=== PATIENT | female | born 1950 | race Hispanic/Latino ===

== ENCOUNTER → 2018-12-08 | Outpatient (CLI) | payer MEDICARE, OTHER | END | disposition home or self-care (01) | LOC: CT 10:43 | PROVIDERS: ATTEND Orthopaedic Surgery | DX: M17.11 Unilateral primary osteoarthritis, right knee (principal) | CPT/HCPCS: 73700 ==

== ENCOUNTER 2019-01-03 08:00 | Inpatient (IN) | payer MEDICARE, OTHER ==
[2018-12-29 11:20] VITALS: BP 146/81
[2018-12-29 11:57] LABS: BILIRUBIN,URINE NEGATIVE (NEGATIVE); UROBILINOGEN,URINE NORMAL (NEGATIVE)
[2018-12-29 11:59] LABS: BASOPHIL % 0.4 % (0.0-0.2); EOSINOPHIL # 0.2 10^3/uL (0.0-0.2); EOSINOPHIL % 2.2 % (0.0-5.0); HEMOGLOBIN 13.3 g/dL (12.0-15.0); LYMPHOCYTES # 2.3 10^3/uL (1.0-4.8); LYMPHOCYTES % 34.2 % (24.0-44.0); MEAN CELL HGB 30.8 pg (26-34); MEAN CORP VOLUME 90.5 fL (78-100); MEAN PLATELET VOLUME 10.4 fL (7.8-11.0); MONOCYTES # 0.5 10^3/uL (0.3-0.8); MONOCYTES % 6.8 % (5.0-12.0); NEUTROPHIL # 3.8 10^3/uL (1.8-7.7); NEUTROPHILS % 56.4 % (41.0-85.0); RED CELL DISTRIBUTION WIDTH 12.8 % (11.5-14.5); WHITE BLOOD CELL 6.7 10^3/uL (4.5-11.0)
--- NOTE | 2018-12-29 12:01 | PCM.EKG ---
[facility] Test Date: 2018-12-29 Test Time: 11:36:03 Pat Name: STEPHY WOOTEN Department: Patient ID: [facility]-[id number] Room: Gender: F Molder Labels: AWLVN : 1950 Requested By: JOLANTA BAUTISTA Order Number: [id number] Reading MD: Harish Recinos Measurements Intervals Teague Rate: 56 P: 73 ME: 192 QRS: 53 QRSD: 88 T: 55 QT: 434 QTc: 418 Interpretive Statements Sinus bradycardia Otherwise normal ECG No previous ECG available for comparison Electronically Signed On 12-30-2018 10:40:31 ETHICS MANAGER by Harish Recinos Please click the below link to view image of tracing.
[2018-12-29 12:07] LABS: APPEARANCE,URINE HAZY (CLEAR); UA COLOR YELLOW (YELLOW)
[2018-12-29 12:15] LABS: CALCIUM 9.3 mg/dL (8.4-10.5); CARBON DIOXIDE 27.3 mmol/L (20.0-32)
[~2019-01-03] VITALS: Ht 165.1 cm; Wt 65.8 kg
[2019-01-03] VITALS (11 sets, daily range): BP systolic 115–149; BP diastolic 66–82
[~2019-01-03 08:00] MED LIST: ANCEF ONE; DECADRON ONE; DILAUDID ONE; DIPRIVAN IV ONE; EPHEDRINE SULFATE ONE; LIDOCAINE 2% VIAL ONE; NAROPIN 0.2% 40 MG/20 ML VIAL ONE; NAROPIN 0.5% 5 MG/ML VIAL ONE; NEOSTIGMINE ONE; NS 1000ML 1,000 ML ONE; NS 100ML 100 ML IV ONE; NS 100ML 200 ML IV ONE; NS 250ML 250 ML IV ONE; NS 3000ML IRR IR ONE; PRECEDEX IV ONE; SENSORCAINE 0.5% VIAL ONE; SODIUM CHLORIDE IR ONE; SUBLIMAZE ONE; TORADOL ONE; TRANEXAMIC ACID IV ONE; VERSED ONE; ZEMURON IV ONE; ZOFRAN ONE
[2019-01-03] MEDS: LACTATED RINGERS 1,000 ML IV SCH ×2 (08:43→21:56)
[2019-01-03] MEDS ORDERED: NEURONTIN PO SCH (09:00)
[2019-01-03] MEDS ORDERED: TYLENOL PO SCH (09:00)
[2019-01-03] MEDS ORDERED: ZOFRAN IV PRN (09:30)
[2019-01-03] MEDS ORDERED: DILAUDID IV PRN (09:30)
[2019-01-03] MEDS ORDERED: PHENERGAN IV PRN (09:30)
--- NOTE | 2019-01-03 13:44 | HPH ---
ADMIT DATE: 01/03/2019 CHIEF COMPLAINT: Painful right knee. HISTORY OF PRESENT ILLNESS: A 68-year-old female with right knee pain secondary to osteoarthritis for several years. She had night pain as well as pain with just household ambulation. She is no better with home exercise program, bracing, Tylenol, Advil, Aleve. She has had multiple cortisone injections in the past with only temporary relief. She complains of locking about the right knee as well as swelling. MEDICATIONS: Include omeprazole as well as Aleve. PAST MEDICAL HISTORY: Positive for GERD, hypercholesterolemia. PAST SURGICAL HISTORY: Hiatal hernia repair, hysterectomy, excision of ganglion cyst from the right wrist. ALLERGIES: The patient has no known drug allergies. FAMILY HISTORY: Positive for uterine cancer as well as colon cancer. SOCIAL HISTORY: The patient is . She does not smoke or drink. REVIEW OF SYSTEMS: Negative for chest pain, shortness of breath, nausea, vomiting, melena, hematochezia, dysuria, hematuria, fever, chills or weight loss. PHYSICAL EXAMINATION: GENERAL: Reveals a 5 feet 6, 145 pounds, female, in no acute distress. HEENT: Within normal limits for her age. CHEST: Clear to auscultation bilaterally. HEART: Regular rate and rhythm, no murmur. ABDOMEN: Soft, nontender, good bowel sounds. EXTREMITIES: Right knee has a valgus deformity on standing. She has 3+ effusion. She has -10 degrees of full extension with 120 degrees of flexion, obvious crepitation. She has got good medial and lateral stability about the knee. NEUROLOGICAL: The patient is awake and alert. She is oriented x 3. Cranial nerves 2-12 are grossly intact. She has 5/5 strength in all muscle groups of both upper and lower extremities bilaterally, symmetric. IMAGING STUDIES: X-rays show valgus alignment of the right knee. She is afdf-ay-ensl about the patellofemoral joint and has medial and lateral compartment narrowing. ASSESSMENT: Osteoarthritis of right knee. Other diagnoses include gastroesophageal reflux disease. PLAN: The patient is being admitted for right total knee arthroplasty. The risks and hazards of the procedure have been reviewed with the patient. She understands the risk involved and wants to proceed as planned. Tamir Sánchez MD DR: JACKELYN/mckinley JOB# [id number]
[2019-01-03] MEDS ORDERED: CEPACOL SORE THROAT LOZENGE MM PRN (14:00)
[2019-01-03] MEDS ORDERED: LACTATED RINGERS 1,000 ML IV SCH (14:00)
[2019-01-03] MEDS ORDERED: ANCEF 2 GM/D5W 50ML IV SCH (14:00)
--- NOTE | 2019-01-03 14:03 | DIREP ---
PROCEDURE:XRAY KNEE 2 VWS-RT COMPARISON:None. INDICATIONS:post-op total right knee FINDINGS: BONES:No acute fracture or loose bone fragment. JOINTS:Right femoral and tibial prostheses appear well seated and in good alignment. Posterior patellar resurfacing. SOFT TISSUES:Postoperative air and multiple skin urbano. OTHER:No additional findings. CONCLUSION:Postoperative changes of recent right knee arthroplasty. Dictated by: Mary Fernandez MD on 01/03/2019 at 02:02 PM
--- NOTE | 2019-01-03 14:16 | OPH ---
DATE OF SURGERY: 01/03/2019 PREOPERATIVE DIAGNOSIS: Osteoarthritis of the right knee. POSTOPERATIVE DIAGNOSIS: Osteoarthritis of the right knee. OPERATIVE PROCEDURE: Right total knee arthroplasty using Medacta Sphere knee, size 4 femur, a size 4 tibia, 10 mm insert, a size 2 dome patella. All components were cemented. SURGEON: Tamir Sánchez MD ANESTHESIA: General endotracheal. TOURNIQUET TIME: 77 minutes at 300 mmHg. DRAINS: None. BLOOD LOSS: 400 mL. DESCRIPTION OF INDICATIONS: The patient is a 68-year-old female with pain about the right knee for several years secondary to osteoarthritis. She failed conservative treatment as outlined in her history and physical. She was lmaf-xb-ewhh about the patellofemoral joint as well as the lateral compartment. She was taken to the operating room for right total knee arthroplasty for pain relief. DESCRIPTION OF PROCEDURE: The patient was placed on operating table in the supine position. A general endotracheal anesthetic was induced without difficulty. The right thigh was padded and a tourniquet was applied. Right lower extremity was then sterilely prepped and draped. The leg was exsanguinated with an Esmarch and the tourniquet was inflated to 300 mmHg. Knee was flexed to 90 degrees. An anterior incision was made. Incision was taken through the skin and the subcutaneous tissues. Full thickness flaps were developed medially and laterally. Medial parapatellar arthrotomy was performed. The patella was deviated laterally. Medial and lateral meniscectomies were completed and the anterior and posterior cruciate ligaments were excised. The capsule and MCL were released around the posterior medial corner. The patient had a synovectomy performed of the suprapatellar pouch because of quite a bit of hypertrophic synovium. The patient then had the [place]Knee femoral cutting guide placed about the distal femur and held into position with multiple pins. The distal femoral cut was then made with the power saw. The #2 jig size 4 was applied to the distal femur and held into position with multiple pins and multiple screws. Anterior and posterior femoral cuts as well as the chamfer cuts were then made. The patient then had the tibia subluxed anteriorly with a bent knee retractor. Medial and lateral meniscectomies were completed. The patient then had the MyKnee tibial guide applied to the anterior tibia. Tibial cut was then made with the power saw. The flexion and extension blocks were used. With a 10 mm block, there was good stability at 90 degrees of flexion and full extension. The patient then had the size 4 tibial trial applied. It was held into position with multiple pins. The central drill hole was made and then the cruciate punch was used to stabilize the tibial trial component. The trial reduction was done with a size 4 femur, size 4 tibia, 10 mm insert. There was good stability. There was good tracking of the patella. The patella was everted. Patella was cut at 7 mm. There were still 14 mm of patella left. The drill holes were made and a size 2 patella had good coverage. The patient then had the final medial and lateral femoral drill holes made. The femoral sulcus cut was made. The trial components were then removed from the knee. The bone ends were copiously irrigated and the bone ends were dried. A size 4 tibial component was cemented into position. The 10 mm insert was then impacted into position and secured with an anterior screw. The size 4 femoral component and the patella were likewise cemented. Once all the excess cement was removed, then the tourniquet was released. The wound was irrigated with Betadine-containing solution for 3 minutes. Once the tourniquet was released, the bleeding was controlled with the Aquamantys device. The soft tissue was injected with the numbing medication. The patient then had the capsule closed with a #2 PDS in interrupted [id number]-rg-[id number] manner. The subcutaneous was closed with a running 2-0 barbed Monocryl. The skin was closed with urbano. A Prevena dressing was applied, reinforced with 4 x 4's, cast padding and Waqas wrap. The patient was extubated in the operating room, sent to recovery in stable condition. Tamir Sánchez MD DR: JACKELYN/mckinley JOB# [id number]
--- NOTE | 2019-01-03 14:16 | NUR ---
ARRIVAL Pt ARRIVED TO UNIT IN ROOM 337 FROM OR, IN HOSPITAL BED ASSISTED BY NURSE LEX RN AND KELSEY RN, REPORT RECIEVD, OFFERED FLUIDS, SPOUSE OF PT AT THE BEDSIDE, INITIATED SPECIAL VITAL, REENFORCED Pt TO USE CALL LIGHT FOR HELP PT VERBALIZED UNDERSTANDING.
[2019-01-03] MEDS: REGLAN IV SCH ×2 (14:53→21:54)
[2019-01-03] MEDS: TYLENOL PO SCH ×3 (15:00→20:52)
[2019-01-03] MEDS ORDERED: LANOLIN HYDROUS TP ONE (15:02)
[2019-01-03] MEDS: ULTRAM PO SCH ×2 (16:09→20:00)
[2019-01-03 18:07] LABS: HEMOGLOBIN 12.5 g/dL (12.0-15.0); MEAN CELL HGB 30.8 pg (26-34); MEAN CORP VOLUME 90.6 fL (78-100); MEAN PLATELET VOLUME 10.3 fL (7.8-11.0); RED CELL DISTRIBUTION WIDTH 12.6 % (11.5-14.5); WHITE BLOOD CELL 8.5 10^3/uL (4.5-11.0)
[2019-01-03] MEDS: ANCEF 2 GM/D5W 50ML 50 ML IV SCH ×2 (18:59)
[2019-01-03] MEDS: ULTRAM PO PRN (20:51)
[2019-01-04] MEDS: ULTRAM PO PRN ×2 (00:37→04:46)
[2019-01-04] MEDS: ANCEF 2 GM/D5W 50ML 50 ML IV SCH ×4 (03:16→11:00)
[2019-01-04] MEDS: TYLENOL PO SCH ×4 (03:20→21:00)
[2019-01-04] MEDS: ULTRAM PO SCH ×6 (04:00→20:00)
[2019-01-04 05:06] VITALS: BP 127/70
[2019-01-04 05:06] LABS: HEMOGLOBIN 11.5 g/dL (12.0-15.0); MEAN CELL HGB 30.5 pg (26-34); MEAN CELL HGB CONCENTRATION 33.9 g/dL (33-37); MEAN CORP VOLUME 89.9 fL (78-100); MEAN PLATELET VOLUME 10.6 fL (7.8-11.0); RED CELL DISTRIBUTION WIDTH 12.4 % (11.5-14.5); WHITE BLOOD CELL 10.5 10^3/uL (4.5-11.0)
[2019-01-04] MEDS: REGLAN IV SCH ×3 (06:38→21:30)
[2019-01-04] MEDS: PEPCID PO SCH (08:33)
[2019-01-04] MEDS: XARELTO PO SCH (08:33)
[2019-01-04] MEDS: COLACE PO SCH (08:33)
[2019-01-04 08:41] VITALS: BP 121/67
--- NOTE | 2019-01-04 09:49 | PRM.PN ---
Subjective Subjective Date: Jan 04, 2019 Time: 09:47 Subjective Awake and alert Pain ok NVM+ vss Stable 3/5 Some nausea this am Better now Ambulated wit PT VSS HGB 11.0 postop anemia from surgical blood loss expected Cont with PT Patient History: No known health problems 33 FATHER, , Age:60 years and older G8 BROTHER G8 SISTER V19 CHILD V19 CHILD No Family History of: Alzheimer's disease Asthma Cerebrovascular disorder Chronic obstructive pulmonary disease Congestive heart failure Diabetes insipidus Diabetes mellitus Hypertension Parkinson's disease VTE VTE Risk Total Score: 2 VTE Risk Score VTE Risk: Score 0-1 = Low Risk (Aggressive mobilization; early ambulation; no VTE prophylaxis required) Score 2: Moderate Risk (Intermittent/Pneumatic Compression Device OR Lovenox/Heparin/Coumadin) Score 3-4: High Risk (Intermittent/Pneumatic Compression Device AND Lovenox/Heparin/Coumadin) Score > or =5: Highest Risk (Intermittent/Pneumatic Compression Device AND Lovenox/Heparin/Coumadin) Review of Systems Allergies: Coded Allergies: No Known Allergies (Unverified , 12/29/18) No Active Prescriptions or Reported Meds Objective Vitals and I/O Vital Sign - Last 24 Hours 01/03/19 01/03/19 01/03/19 01/03/19 08:24 08:24 09:44 09:52 Temp 98.1 98.1 Pulse 74 66 62 Resp 16 18 18 B/P (MAP) 139/73 (95) 149/66 (93) 130/80 (97) Pulse Ox 97 100 100 O2 Delivery Room Air Room Air Nasal Canula Nasal Canula O2 Flow Rate 2 2 01/03/19 01/03/19 01/03/19 01/03/19 09:59 13:25 13:25 13:39 Temp 97.7 98 97.7 98.0 Pulse 62 62 63 Resp 18 18 18 B/P (MAP) 127/76 (93) 115/72 (86) 122/66 (84) Pulse Ox 100 100 100 O2 Delivery Nasal Canula Non-Rebreather Room Air O2 Flow Rate 3 10 10 01/03/19 01/03/19 01/03/19 01/03/19 13:54 14:16 14:30 15:21 Temp 97.6 97.9 97.6 97.9 Pulse 66 60 Resp 18 20 18 B/P (MAP) 121/70 (87) 128/74 (92) Pulse Ox 99 97 99 O2 Delivery Room Air Room Air Room Air 01/03/19 01/03/19 15:22 15:40 Temp 97.9 97.9 Pulse 60 81 Resp 16 20 B/P (MAP) 122/68 (86) Pulse Ox 60 98 O2 Delivery Room Air Room Air FiO2 99 All Results(Lab/Rad) Current Medications Medications (Trade) Dose Ordered Sig/Laura Route PRN Reason Start Time Stop Time Status Last Admin Dose Admin Cefazolin Sodium (Ancef) 1 gm STK-MED ONCE .ROUTE 01/03/19 05:36 01/03/19 05:37 DC Sodium Chloride 100 ml @ ud STK-MED ONCE IV 01/03/19 05:36 01/03/19 05:37 DC Sodium Chloride 1,000 ml @ ud STK-MED ONCE .ROUTE 01/03/19 06:21 01/03/19 06:22 DC Sodium Chloride 200 ml @ ud STK-MED ONCE IV 01/03/19 06:21 01/03/19 06:22 DC Dexamethasone Sodium Phosphate (Decadron) 4 mg STK-MED ONCE .ROUTE 01/03/19 06:21 01/03/19 06:22 DC Ropivacaine (Naropin 0.2% 40 Mg/20 ml Vial) 2 mg STK-MED ONCE .ROUTE 01/03/19 06:22 01/03/19 06:23 DC Lidocaine HCl (Lidocaine 2% Vial) 500 mg STK-MED ONCE .ROUTE 01/03/19 06:22 01/03/19 06:24 DC Neostigmine Methylsulfate (Neostigmine) 10 mg STK-MED ONCE .ROUTE 01/03/19 06:22 01/03/19 06:24 DC Dexmedetomidine HCl (Precedex) 200 mcg STK-MED ONCE IV 01/03/19 06:22 01/03/19 06:24 DC Ondansetron HCl (Zofran) 4 mg STK-MED ONCE .ROUTE 01/03/19 06:22 01/03/19 06:24 DC Ketorolac Tromethamine (Toradol) 30 mg STK-MED ONCE .ROUTE 01/03/19 06:23 01/03/19 06:24 DC Ropivacaine (Naropin 0.5% 5 Mg/ml Vial) 150 mg STK-MED ONCE .ROUTE 01/03/19 06:23 01/03/19 06:24 DC Ephedrine Sulfate (Ephedrine Sulfate) 50 mg STK-MED ONCE .ROUTE 01/03/19 06:23 01/03/19 06:25 DC Rocuronium Percival (Zemuron) 100 mg STK-MED ONCE IV 01/03/19 06:24 01/03/19 06:25 DC Hydromorphone HCl (Dilaudid) 2 mg STK-MED ONCE .ROUTE 01/03/19 06:24 01/03/19 06:25 DC Midazolam HCl (Versed) 1 mg STK-MED ONCE .ROUTE 01/03/19 06:24 01/03/19 06:26 DC Fentanyl Citrate (Sublimaze) 100 mcg STK-MED ONCE .ROUTE 01/03/19 06:24 01/03/19 06:26 DC Propofol (Diprivan) 200 mg STK-MED ONCE IV 01/03/19 06:24 01/03/19 06:26 DC Bupivacaine HCl (Sensorcaine 0.5% Vial) 5 mg STK-MED ONCE .ROUTE 01/03/19 06:25 01/03/19 06:26 DC Sodium Chloride (Sodium Chloride) 1,000 ml STK-MED ONCE IR 01/03/19 07:16 01/03/19 07:18 DC Sodium Chloride 100 ml @ ud STK-MED ONCE IV 01/03/19 07:16 01/03/19 07:18 DC Sodium Chloride 250 ml @ ud STK-MED ONCE IV 01/03/19 07:17 01/03/19 07:18 DC Sodium Chloride (NS 3000ml Irr) 3,000 ml STK-MED ONCE IR 01/03/19 07:17 01/03/19 07:18 DC Tranexamic Acid (Tranexamic Acid) 1,000 mg STK-MED ONCE IV 01/03/19 07:37 01/03/19 07:39 DC Acetaminophen (Tylenol) 1,000 mg OT PO 01/03/19 09:00 01/03/19 14:23 DC 01/03/19 09:23 Gabapentin (Neurontin) 400 mg OT PO 01/03/19 09:00 01/03/19 14:22 DC 01/03/19 09:23 Acetaminophen (Tylenol) 1,000 mg Q6H PO 01/03/19 09:00 02/02/19 08:59 Hydromorphone HCl (Dilaudid) 0.2 mg Q5MIN PRN IV PAIN 1 - 3 01/03/19 09:30 01/04/19 09:29 Ondansetron HCl (Zofran) 4 mg PRN PRN IV nv 01/03/19 09:30 01/03/19 14:25 DC Promethazine HCl (Phenergan) 6.25 mg PRN PRN IV NAUSEA / VOMITING 01/03/19 09:30 01/03/19 14:24 DC Tramadol HCl (Ultram) 50 mg Q4HR PO 01/03/19 16:00 02/02/19 15:59 01/03/19 16:09 Tramadol HCl (Ultram) 100 mg Q4HR PRN PO SEVERE PAIN 01/03/19 14:00 02/02/19 13:59 Rivaroxaban (Xarelto) 10 mg DAILY PO 01/04/19 09:00 02/03/19 08:59 Docusate Sodium (Colace) 100 mg DAILY PO 01/04/19 09:00 02/03/19 08:59 Throat Lozenges (Cepacol Sore Throat Lozenge) 1 each PRN PRN MM SORE THROAT 01/03/19 14:00 02/02/19 13:59 Famotidine (Pepcid) 20 mg DAILY PO 01/04/19 09:00 02/03/19 08:59 Metoclopramide HCl (Reglan) 10 mg Q8HR IV 01/03/19 14:00 02/02/19 13:59 01/03/19 14:53 Cefazolin Sodium/ Dextrose (Ancef 2 Gm/D5W 50ml) 2 gm Q8 IV 01/03/19 14:00 01/03/19 14:12 DC Hydromorphone HCl (Dilaudid) 2 mg Q6HR PRN IV PAIN 8-10 01/03/19 14:00 02/02/19 13:59 Cefazolin Sodium/ Dextrose 50 ml @ 100 mls/hr Q8 IV 01/03/19 14:00 01/03/19 15:24 DC Lanolin (Lanolin Hydrous) 28 gm STK-MED ONCE TP 01/03/19 15:02 01/03/19 15:03 DC Cefazolin Sodium/ Dextrose 50 ml @ 100 mls/hr Q8H IV 01/03/19 19:00 01/04/19 11:29 Course Sepsis Screening Results: Posi: NEGATIVE Sepsis Qualifier/Stage: NO DEFINITE RISK Vitals & review Data Vital Sign - Last 24 Hours 01/03/19 01/03/19 01/03/19 01/03/19 08:24 08:24 09:44 09:52 Temp 98.1 98.1 Pulse 74 66 62 Resp 16 18 18 B/P (MAP) 139/73 (95) 149/66 (93) 130/80 (97) Pulse Ox 97 100 100 O2 Delivery Room Air Room Air Nasal Canula Nasal Canula O2 Flow Rate 2 2 01/03/19 01/03/19 01/03/19 01/03/19 09:59 13:25 13:25 13:39 Temp 97.7 98 97.7 98.0 Pulse 62 62 63 Resp 18 18 18 B/P (MAP) 127/76 (93) 115/72 (86) 122/66 (84) Pulse Ox 100 100 100 O2 Delivery Nasal Canula Non-Rebreather Room Air O2 Flow Rate 3 10 10 01/03/19 01/03/19 01/03/19 01/03/19 13:54 14:16 14:30 15:21 Temp 97.6 97.9 97.6 97.9 Pulse 66 60 Resp 18 20 18 B/P (MAP) 121/70 (87) 128/74 (92) Pulse Ox 99 97 99 O2 Delivery Room Air Room Air Room Air 01/03/19 01/03/19 15:22 15:40 Temp 97.9 97.9 Pulse 60 81 Resp 16 20 B/P (MAP) 122/68 (86) Pulse Ox 60 98 O2 Delivery Room Air Room Air FiO2 99 Current Medications Medications (Trade) Dose Ordered Sig/Laura PRN Reason Start Time Stop Time Status Last Admin Acetaminophen (Tylenol) 1,000 mg Q6H 01/03/19 09:00 02/02/19 08:59 Cefazolin Sodium/ Dextrose 50 ml @ 100 mls/hr Q8H 01/03/19 19:00 01/04/19 11:29 Docusate Sodium (Colace) 100 mg DAILY 01/04/19 09:00 02/03/19 08:59 Famotidine (Pepcid) 20 mg DAILY 01/04/19 09:00 02/03/19 08:59 Hydromorphone HCl (Dilaudid) 0.2 mg Q5MIN PRN PAIN 1 - 3 01/03/19 09:30 01/04/19 09:29 Hydromorphone HCl (Dilaudid) 2 mg Q6HR PRN PAIN 8-10 01/03/19 14:00 02/02/19 13:59 Metoclopramide HCl (Reglan) 10 mg Q8HR 01/03/19 14:00 02/02/19 13:59 01/03/19 14:53 Rivaroxaban (Xarelto) 10 mg DAILY 01/04/19 09:00 02/03/19 08:59 Throat Lozenges (Cepacol Sore Throat Lozenge) 1 each PRN PRN SORE THROAT 01/03/19 14:00 02/02/19 13:59 Tramadol HCl (Ultram) 50 mg Q4HR 01/03/19 16:00 02/02/19 15:59 01/03/19 16:09 Tramadol HCl (Ultram) 100 mg Q4HR PRN SEVERE PAIN 01/03/19 14:00 02/02/19 13:59 Sepsis Infection Criteria Pres: None LEVEL 1 SEPSIS INFECTION CRITE: ABX Therapy, Recent Invasive Procedure O2 Sat by Pulse Oximetry: 93 Oxygen Flow Rate: 10 JOLANTA BAUTISTA MD Jan 04, 2019 09:49
--- NOTE | 2019-01-04 10:09 | NUR ---
Post Anesthesia Visit. Ms. Madsen had a Right Total Knee Arthroplasty yesterday with a Right Femoral, Adductor Canal and IPAK block. She was sitting in a chair after ambulating. She has been taking Tramadol Since yesterday but it is upsetting her stomach. She rated the knee pain at a 2 to 3. In talking with the nurse, he feels yesterday she was nauseated more than uncomfortable and had a good first day. Injection sites appear clean and dry without evidence of redness or infection. Full sensation and movement appear to have returned. She states she is very happy with her post operative course so far. No apparent post anesthetic or post block sequelae
[2019-01-04] MEDS: LACTATED RINGERS 1,000 ML IV SCH ×3 (11:43→21:30)
[2019-01-04] MEDS ORDERED: ANCEF 2 GM/D5W 50ML 50 ML IV ONE (12:00)
[2019-01-04 12:50] VITALS: BP 128/57
[2019-01-04] MEDS: ZOFRAN IV PRN ×2 (16:54→20:24)
[2019-01-04 16:59] VITALS: BP 142/65
--- NOTE | 2019-01-04 17:10 | NUR ---
STATUS PT DIAZ CATHETER TUBE SHOWS HEMATURIA. PT HAS CONTINUED TO VOMIT AT THIS TIME WITHOUT BEING ABLE TO KEEP FOOD OR FLUIDS DOWN. DR. BAUTISTA NOTIFIED. DR. DIAZ CONSULTED. NEW ORDERS RECEIVED FROM LABS, ABD XRAY, AND ZOFRAN 4MG IV Q4H. WILL CONT TO MONITOR PT.
[2019-01-04 17:15] LABS: HEMOGLOBIN 11.1 g/dL (12.0-15.0); LYMPHOCYTES # 1.4 10^3/uL (1.0-4.8); LYMPHOCYTES % 10.1 % (24.0-44.0); MEAN CELL HGB 31.3 pg (26-34); MEAN CELL HGB CONCENTRATION 35.1 g/dL (33-37); MEAN PLATELET VOLUME 10.5 fL (7.8-11.0); MONOCYTES # 1.3 10^3/uL (0.3-0.8); MONOCYTES % 9.4 % (5.0-12.0); NEUTROPHIL # 11.1 10^3/uL (1.8-7.7); NEUTROPHILS % 80.4 % (41.0-85.0); RED CELL DISTRIBUTION WIDTH 12.2 % (11.5-14.5); WHITE BLOOD CELL 13.8 10^3/uL (4.5-11.0)
[2019-01-04 17:33] LABS: CARBON DIOXIDE 24.1 mmol/L (20.0-32)
[2019-01-04 17:34] LABS: CALCIUM 8.5 mg/dL (8.4-10.5)
[2019-01-04 17:46] LABS: BILIRUBIN,URINE NEGATIVE (NEGATIVE); UROBILINOGEN,URINE NORMAL (NEGATIVE)
[2019-01-04 18:02] LABS: APPEARANCE,URINE BLOODY (CLEAR); UA COLOR BLOODY (YELLOW)
[2019-01-04] MEDS: MYLANTA PO SCH (18:10)
[2019-01-04] MEDS: DILAUDID IV PRN ×2 (18:14→23:35)
--- NOTE | 2019-01-04 18:30 | NUR ---
HEMATURIA HAS SEEMED TO RESOLVE AT THIS TIME. PT URINE IS LIGHT PINK AT THIS TIME.
--- NOTE | 2019-01-04 19:00 | NUR ---
Report Received report from Kierra Lewis RN
[2019-01-04 19:43] VITALS: BP 129/64
--- NOTE | 2019-01-04 20:08 | PRM.CONS ---
Consultation Reason for Consult: Reason for Consultation: Hematuria, Nausea/vomiting History of Present Illness History of Patient Comments Patient is a 68 F PMH of OA s/p R TKA with Dr. Avery, patient is POD #1. Patient began having Hematuria and nausea vomiting earlier this afternoon. Patient had STAT labs ordered including CBC, CMP, and UA. We also ordered Abdominal plain film that is still pending. Patient given IV antiemetics with improvement in symptoms. Patient is stable @ bedside during my evaluation. Hg stable without significant drop so we will continue Xarelto currently. Patient denies fever, chills, or any other concerning symptoms. My concern is for possible postoperative Ileus. Patient abdominal exam is benign. Past Medical History 1. Osteoarthritis 2. Hiatal Hernia s/p repair Past Surgical History 1. Bunionectomy 2. R TKA 3. Hiatal Hernia Repair 4. Ganglion Cyst removal Social History: No tobacco, no drug, no alcohol use. , lives @ home with Family History: noncontributory Review of Systems Constitutional: No: Fever, Chills Eyes: No: Conjunctivae inflammation, Eyelid inflammation ENT: No: Nose discharge, Nose congestion Respiratory: No: Cough, Shortness of breath, SOB with excertion, Wheezing Cardiovascular: No: Chest Pain, Palpitations, Edema Gastrointestinal: Nausea, Vomiting, Constipation; No: Abdominal Pain, Diarrhea Genitourinary: Hematuria; No Retention Musculoskeletal: No: neck pain, back pain Skin: No: Rash, Lesions, Jaundice, Bruising Neurological: No: Weakness, Numbness, Incoordination, Change in speech, Confusion, Seizures Allergies: Coded Allergies: No Known Allergies (Unverified , 12/29/18) No Active Prescriptions or Reported Meds VTE VTE Risk Total Score: 2 VTE Risk Score VTE Risk: Score 0-1 = Low Risk (Aggressive mobilization; early ambulation; no VTE prophylaxis required) Score 2: Moderate Risk (Intermittent/Pneumatic Compression Device OR Lovenox/Heparin/Coumadin) Score 3-4: High Risk (Intermittent/Pneumatic Compression Device AND Lovenox/Heparin/Coumadin) Score > or =5: Highest Risk (Intermittent/Pneumatic Compression Device AND Lovenox/Heparin/Coumadin) Assessment/Plan Assessment/Plan Assessment/Plan Patient is a 68 F PMH of OA s/p R TKA with Dr. Avery, patient is POD #1. Patient History: No known health problems 33 FATHER, , Age:60 years and older G8 BROTHER G8 SISTER V19 CHILD V19 CHILD No Family History of: Alzheimer's disease Asthma Cerebrovascular disorder Chronic obstructive pulmonary disease Congestive heart failure Diabetes insipidus Diabetes mellitus Hypertension Parkinson's disease Plan 1. Hematuria: 2/2 gallegos irritation with anticoagulation use. Hg stable, recheck CBC in AM. 2. Nausea/vomiting: concern for postoperative Ileus. Abdominal XR pending. Cont IV antiemetics. Abdominal exam benign. 3. Leukocytosis: likely 2/2 postoperative changes, possible Ileus/ constipation. No fevers currently. 4. OA: s/p R TKA, Ortho managing. 5. PPx: Joe Vasquez MICAH R MD Jan 04, 2019 20:08
--- NOTE | 2019-01-04 20:13 | NUR ---
Patient refused 2000 Tramadol due to vomitting.
--- NOTE | 2019-01-04 20:16 | DIREP ---
PROCEDURE:XRAY ABDOMEN SINGLE VW COMPARISON:None. INDICATIONS:nausea/vomiting FINDINGS: BOWEL GAS PATTERN:Ixyc-cm-etwrrgyy mixed stool and gas throughout the colon. No dilated loops of small bowel are identified. CALCIFICATIONS:Presumed phleboliths within the pelvis. LUNG BASES:Grossly clear. BONES:Advanced degenerative changes of the spine with dextro convex curvature of the lumbar spine. OTHER:Surgical clips within the right upper quadrant and epigastric region. CONCLUSION: 1. Nonspecific nonobstructive bowel gas pattern. Eqxz-xg-jrcaobyz fecal burden. 2. Presumed phleboliths within the pelvis. Dictated by: Tian Hernandez M.D. On 01/04/2019 at 08:13 PM
[2019-01-04] MEDS ORDERED: TORADOL IV STA (21:18)
[2019-01-04 23:40] VITALS: BP 141/79
[2019-01-05] MEDS: TYLENOL PO SCH ×4 (03:00→21:00)
[2019-01-05] MEDS ORDERED: TORADOL IV STA (03:06)
--- NOTE | 2019-01-05 03:10 | NUR ---
Patient continues to refuse PO meds. States " im scared i will just throw it up "
[2019-01-05] MEDS: ULTRAM PO SCH ×2 (04:00)
[2019-01-05 05:08] VITALS: BP 165/90
[2019-01-05 05:15] LABS: MEAN CELL HGB 30.6 pg (26-34); MEAN CELL HGB CONCENTRATION 34.6 g/dL (33-37); MEAN CORP VOLUME 88.4 fL (78-100); MEAN PLATELET VOLUME 10.6 fL (7.8-11.0); RED CELL DISTRIBUTION WIDTH 12.1 % (11.5-14.5); WHITE BLOOD CELL 11.1 10^3/uL (4.5-11.0)
[2019-01-05 05:49] LABS: CALCIUM 8.3 mg/dL (8.4-10.5); CARBON DIOXIDE 27.2 mmol/L (20.0-32)
[2019-01-05] MEDS: MYLANTA PO SCH ×4 (05:54→19:27)
[2019-01-05] MEDS: REGLAN IV SCH ×3 (05:55→22:33)
--- NOTE | 2019-01-05 06:57 | NUR ---
Report Report given to Kierra Lewis RN
[2019-01-05 07:48] VITALS: BP 138/81
[2019-01-05] MEDS: LACTATED RINGERS 1,000 ML IV SCH ×2 (08:30→21:14)
[2019-01-05] MEDS: ULTRAM PO PRN (08:49)
[2019-01-05] MEDS: ZOFRAN IV PRN ×2 (08:49→17:01)
[2019-01-05] MEDS: PEPCID PO SCH (08:50)
[2019-01-05] MEDS: COLACE PO SCH (08:50)
[2019-01-05] MEDS: XARELTO PO SCH (08:50)
--- NOTE | 2019-01-05 09:38 | PRM.PN ---
Subjective Subjective Date: Jan 05, 2019 Time: 09:36 Subjective Pain ok but still having nausea VSS [id number] Will adjust pain meds Cont with PT Patient History: No known health problems 32 FATHER, , Age:60 years and older G8 BROTHER G8 SISTER V19 CHILD V19 CHILD No Family History of: Alzheimer's disease Asthma Cerebrovascular disorder Chronic obstructive pulmonary disease Congestive heart failure Diabetes insipidus Diabetes mellitus Hypertension Parkinson's disease VTE VTE Risk Total Score: 2 VTE Risk Score VTE Risk: Score 0-1 = Low Risk (Aggressive mobilization; early ambulation; no VTE prophylaxis required) Score 2: Moderate Risk (Intermittent/Pneumatic Compression Device OR Lovenox/Heparin/Coumadin) Score 3-4: High Risk (Intermittent/Pneumatic Compression Device AND Lovenox/Heparin/Coumadin) Score > or =5: Highest Risk (Intermittent/Pneumatic Compression Device AND Lovenox/Heparin/Coumadin) Review of Systems Constitutional: No: Fever, Chills Eyes: No: Conjunctivae inflammation, Eyelid inflammation ENT: No: Nose discharge, Nose congestion Respiratory: No: Cough, Shortness of breath, SOB with excertion, Wheezing Cardiovascular: No: Chest Pain, Palpitations, Edema Gastrointestinal: Nausea, Vomiting, Constipation; No: Abdominal Pain, Diarrhea Genitourinary: Hematuria; No Retention Musculoskeletal: No: neck pain, back pain Skin: No: Rash, Lesions, Jaundice, Bruising Neurological: No: Weakness, Numbness, Incoordination, Change in speech, Confusion, Seizures Allergies: Coded Allergies: No Known Allergies (Unverified , 12/29/18) No Active Prescriptions or Reported Meds Objective Vitals and I/O Vital Sign - Last 24 Hours 01/03/19 01/03/19 01/03/19 01/03/19 08:24 08:24 09:44 09:52 Temp 98.1 98.1 Pulse 74 66 62 Resp 16 18 18 B/P (MAP) 139/73 (95) 149/66 (93) 130/80 (97) Pulse Ox 97 100 100 O2 Delivery Room Air Room Air Nasal [place] Nasal Canula O2 Flow Rate 2 2 01/03/19 01/03/19 01/03/19 01/03/19 09:59 13:25 13:25 13:39 Temp 97.7 98 97.7 98.0 Pulse 62 62 63 Resp 18 18 18 B/P (MAP) 127/76 (93) 115/72 (86) 122/66 (84) Pulse Ox 100 100 100 O2 Delivery Nasal [place] Non-Rebreather Room Air O2 Flow Rate 3 10 10 01/03/19 01/03/19 01/03/19 01/03/19 13:54 14:16 14:30 15:21 Temp 97.6 97.9 97.6 97.9 Pulse 66 60 Resp 18 20 18 B/P (MAP) 121/70 (87) 128/74 (92) Pulse Ox 99 97 99 O2 Delivery Room Air Room Air Room Air 01/03/19 01/03/19 15:22 15:40 Temp 97.9 97.9 Pulse 60 81 Resp 16 20 B/P (MAP) 122/68 (86) Pulse Ox 60 98 O2 Delivery Room Air Room Air FiO2 99 All Results(Lab/Rad) Current Medications Medications (Trade) Dose Ordered Sig/Laura Route PRN Reason Start Time Stop Time Status Last Admin Dose Admin Cefazolin Sodium (Ancef) 1 gm STK-MED ONCE .ROUTE 01/03/19 05:36 01/03/19 05:37 DC Sodium Chloride 100 ml @ ud STK-MED ONCE IV 01/03/19 05:36 01/03/19 05:37 DC Sodium Chloride 1,000 ml @ ud STK-MED ONCE .ROUTE 01/03/19 06:21 01/03/19 06:22 DC Sodium Chloride 200 ml @ ud STK-MED ONCE IV 01/03/19 06:21 01/03/19 06:22 DC Dexamethasone Sodium Phosphate (Decadron) 4 mg STK-MED ONCE .ROUTE 01/03/19 06:21 01/03/19 06:22 DC Ropivacaine (Naropin 0.2% 40 Mg/20 ml Vial) 2 mg STK-MED ONCE .ROUTE 01/03/19 06:22 01/03/19 06:23 DC Lidocaine HCl (Lidocaine 2% Vial) 500 mg STK-MED ONCE .ROUTE 01/03/19 06:22 01/03/19 06:24 DC Neostigmine Methylsulfate (Neostigmine) 10 mg STK-MED ONCE .ROUTE 01/03/19 06:22 01/03/19 06:24 DC Dexmedetomidine HCl (Precedex) 200 mcg STK-MED ONCE IV 01/03/19 06:22 01/03/19 06:24 DC Ondansetron HCl (Zofran) 4 mg STK-MED ONCE .ROUTE 01/03/19 06:22 01/03/19 06:24 DC Ketorolac Tromethamine (Toradol) 30 mg STK-MED ONCE .ROUTE 01/03/19 06:23 01/03/19 06:24 DC Ropivacaine (Naropin 0.5% 5 Mg/ml Vial) 150 mg STK-MED ONCE .ROUTE 01/03/19 06:23 01/03/19 06:24 DC Ephedrine Sulfate (Ephedrine Sulfate) 50 mg STK-MED ONCE .ROUTE 01/03/19 06:23 01/03/19 06:25 DC Rocuronium [place] (Zemuron) 100 mg STK-MED ONCE IV 01/03/19 06:24 01/03/19 06:25 DC Hydromorphone HCl (Dilaudid) 2 mg STK-MED ONCE .ROUTE 01/03/19 06:24 01/03/19 06:25 DC Midazolam HCl (Versed) 1 mg STK-MED ONCE .ROUTE 01/03/19 06:24 01/03/19 06:26 DC Fentanyl Citrate (Sublimaze) 100 mcg STK-MED ONCE .ROUTE 01/03/19 06:24 01/03/19 06:26 DC Propofol (Diprivan) 200 mg STK-MED ONCE IV 01/03/19 06:24 01/03/19 06:26 DC Bupivacaine HCl (Sensorcaine 0.5% Vial) 5 mg STK-MED ONCE .ROUTE 01/03/19 06:25 01/03/19 06:26 DC Sodium Chloride (Sodium Chloride) 1,000 ml STK-MED ONCE IR 01/03/19 07:16 01/03/19 07:18 DC Sodium Chloride 100 ml @ ud STK-MED ONCE IV 01/03/19 07:16 01/03/19 07:18 DC Sodium Chloride 250 ml @ ud STK-MED ONCE IV 01/03/19 07:17 01/03/19 07:18 DC Sodium Chloride (NS 3000ml Irr) 3,000 ml STK-MED ONCE IR 01/03/19 07:17 01/03/19 07:18 DC Tranexamic Acid (Tranexamic Acid) 1,000 mg STK-MED ONCE IV 01/03/19 07:37 01/03/19 07:39 DC Acetaminophen (Tylenol) 1,000 mg OT PO 01/03/19 09:00 01/03/19 14:23 DC 01/03/19 09:23 Gabapentin (Neurontin) 400 mg OT PO 01/03/19 09:00 01/03/19 14:22 DC 01/03/19 09:23 Acetaminophen (Tylenol) 1,000 mg Q6H PO 01/03/19 09:00 02/02/19 08:59 Hydromorphone HCl (Dilaudid) 0.2 mg Q5MIN PRN IV PAIN 1 - 3 01/03/19 09:30 01/04/19 09:29 Ondansetron HCl (Zofran) 4 mg PRN PRN IV nv 01/03/19 09:30 01/03/19 14:25 DC Promethazine HCl (Phenergan) 6.25 mg PRN PRN IV NAUSEA / VOMITING 01/03/19 09:30 01/03/19 14:24 DC Tramadol HCl (Ultram) 50 mg Q4HR PO 01/03/19 16:00 02/02/19 15:59 01/03/19 16:09 Tramadol HCl (Ultram) 100 mg Q4HR PRN PO SEVERE PAIN 01/03/19 14:00 02/02/19 13:59 Rivaroxaban (Xarelto) 10 mg DAILY PO 01/04/19 09:00 02/03/19 08:59 Docusate Sodium (Colace) 100 mg DAILY PO 01/04/19 09:00 02/03/19 08:59 Throat Lozenges (Cepacol Sore Throat Lozenge) 1 each PRN PRN MM SORE THROAT 01/03/19 14:00 02/02/19 13:59 Famotidine (Pepcid) 20 mg DAILY PO 01/04/19 09:00 02/03/19 08:59 Metoclopramide HCl (Reglan) 10 mg Q8HR IV 01/03/19 14:00 02/02/19 13:59 01/03/19 14:53 Cefazolin Sodium/ Dextrose (Ancef 2 Gm/D5W 50ml) 2 gm Q8 IV 01/03/19 14:00 01/03/19 14:12 DC Hydromorphone HCl (Dilaudid) 2 mg Q6HR PRN IV PAIN 8-10 01/03/19 14:00 02/02/19 13:59 Cefazolin Sodium/ Dextrose 50 ml @ 100 mls/hr Q8 IV 01/03/19 14:00 01/03/19 15:24 DC Lanolin (Lanolin Hydrous) 28 gm STK-MED ONCE TP 01/03/19 15:02 01/03/19 15:03 DC Cefazolin Sodium/ Dextrose 50 ml @ 100 mls/hr Q8H IV 01/03/19 19:00 01/04/19 11:29 Course Sepsis Screening Results: Posi: NEGATIVE Sepsis Qualifier/Stage: NO DEFINITE RISK Vitals & review Data Vital Sign - Last 24 Hours 01/03/19 01/03/19 01/03/19 01/03/19 08:24 08:24 09:44 09:52 Temp 98.1 98.1 Pulse 74 66 62 Resp 16 18 18 B/P (MAP) 139/73 (95) 149/66 (93) 130/80 (97) Pulse Ox 97 100 100 O2 Delivery Room Air Room Air Nasal [place] Nasal [place]ula O2 Flow Rate 2 2 01/03/19 01/03/19 01/03/19 01/03/19 09:59 13:25 13:25 13:39 Temp 97.7 98 97.7 98.0 Pulse 62 62 63 Resp 18 18 18 B/P (MAP) 127/76 (93) 115/72 (86) 122/66 (84) Pulse Ox 100 100 100 O2 Delivery Nasal [place] Non-Rebreather Room Air O2 Flow Rate 3 10 10 01/03/19 01/03/19 01/03/19 01/03/19 13:54 14:16 14:30 15:21 Temp 97.6 97.9 97.6 97.9 Pulse 66 60 Resp 18 20 18 B/P (MAP) 121/70 (87) 128/74 (92) Pulse Ox 99 97 99 O2 Delivery Room Air Room Air Room Air 01/03/19 01/03/19 15:22 15:40 Temp 97.9 97.9 Pulse 60 81 Resp 16 20 B/P (MAP) 122/68 (86) Pulse Ox 60 98 O2 Delivery Room Air Room Air FiO2 99 Current Medications Medications (Trade) Dose Ordered Sig/Laura PRN Reason Start Time Stop Time Status Last Admin Acetaminophen (Tylenol) 1,000 mg Q6H 01/03/19 09:00 02/02/19 08:59 Cefazolin Sodium/ Dextrose 50 ml @ 100 mls/hr Q8H 01/03/19 19:00 01/04/19 11:29 Docusate Sodium (Colace) 100 mg DAILY 01/04/19 09:00 02/03/19 08:59 Famotidine (Pepcid) 20 mg DAILY 01/04/19 09:00 02/03/19 08:59 Hydromorphone HCl (Dilaudid) 0.2 mg Q5MIN PRN PAIN 1 - 3 01/03/19 09:30 01/04/19 09:29 Hydromorphone HCl (Dilaudid) 2 mg Q6HR PRN PAIN 8-10 01/03/19 14:00 02/02/19 13:59 Metoclopramide HCl (Reglan) 10 mg Q8HR 01/03/19 14:00 02/02/19 13:59 01/03/19 14:53 Rivaroxaban (Xarelto) 10 mg DAILY 01/04/19 09:00 02/03/19 08:59 Throat Lozenges (Cepacol Sore Throat Lozenge) 1 each PRN PRN SORE THROAT 01/03/19 14:00 02/02/19 13:59 Tramadol HCl (Ultram) 50 mg Q4HR 01/03/19 16:00 02/02/19 15:59 01/03/19 16:09 Tramadol HCl (Ultram) 100 mg Q4HR PRN SEVERE PAIN 01/03/19 14:00 02/02/19 13:59 Sepsis Infection Criteria Pres: Suspected Infection LEVEL 1 SEPSIS INFECTION CRITE: ABX Therapy, Abdominal Pain, Recent Invasive Procedure LEVEL 2-SIRS (LIST ALL THAT AP: WBC>24702 O2 Sat by Pulse Oximetry: 98 Oxygen Flow Rate: 10 Assessment/Plan Assessment/Plan Assessment/Plan 1. Hematuria: 2/2 gallegos irritation with anticoagulation use. Hg stable, recheck CBC in AM. 2. Nausea/vomiting: concern for postoperative Ileus. Abdominal XR pending. Cont IV antiemetics. Abdominal exam benign. 3. Leukocytosis: likely 2/2 postoperative changes, possible Ileus/ constipation. No fevers currently. 4. OA: s/p R TKA, Ortho managing. 5. PPx: Joe Vasquez Plan 1. Hematuria: 2/2 gallegos irritation with anticoagulation use. Hg stable, recheck CBC in AM. 2. Nausea/vomiting: concern for postoperative Ileus. Abdominal XR pending. Cont IV antiemetics. Abdominal exam benign. 3. Leukocytosis: likely 2/2 postoperative changes, possible Ileus/ constipation. No fevers currently. 4. OA: s/p R TKA, Ortho managing. 5. PPx: Joe Vasquez DAVID M MD Jan 05, 2019 09:38
[2019-01-05] MEDS ORDERED: TYLENOL #3 PO PRN ×2 (10:00)
--- NOTE | 2019-01-05 14:08 | PRM.PN ---
Subjective Subjective Date: Jan 05, 2019 Time: 14:00 Subjective Patient pain, nausea much improved. Labs reviewed. No complaints. Patient History: No known health problems 33 FATHER, , Age:60 years and older G8 BROTHER G8 SISTER V19 CHILD V19 CHILD No Family History of: Alzheimer's disease Asthma Cerebrovascular disorder Chronic obstructive pulmonary disease Congestive heart failure Diabetes insipidus Diabetes mellitus Hypertension Parkinson's disease VTE VTE Risk Total Score: 2 VTE Risk Score VTE Risk: Score 0-1 = Low Risk (Aggressive mobilization; early ambulation; no VTE prophylaxis required) Score 2: Moderate Risk (Intermittent/Pneumatic Compression Device OR Lovenox/Heparin/Coumadin) Score 3-4: High Risk (Intermittent/Pneumatic Compression Device AND Lovenox/Heparin/Coumadin) Score > or =5: Highest Risk (Intermittent/Pneumatic Compression Device AND Lovenox/Heparin/Coumadin) Review of Systems Allergies: Coded Allergies: No Known Allergies (Unverified , 12/29/18) No Active Prescriptions or Reported Meds Objective Vitals and I/O Vital Sign - Last 24 Hours 01/03/19 01/03/19 01/03/19 01/03/19 08:24 08:24 09:44 09:52 Temp 98.1 98.1 Pulse 74 66 62 Resp 16 18 18 B/P (MAP) 139/73 (95) 149/66 (93) 130/80 (97) Pulse Ox 97 100 100 O2 Delivery Room Air Room Air Nasal [place] Nasal [place]ula O2 Flow Rate 2 2 01/03/19 01/03/19 01/03/19 01/03/19 09:59 13:25 13:25 13:39 Temp 97.7 98 97.7 98.0 Pulse 62 62 63 Resp 18 18 18 B/P (MAP) 127/76 (93) 115/72 (86) 122/66 (84) Pulse Ox 100 100 100 O2 Delivery Nasal [place] Non-Rebreather Room Air O2 Flow Rate 3 10 10 01/03/19 01/03/19 01/03/19 01/03/19 13:54 14:16 14:30 15:21 Temp 97.6 97.9 97.6 97.9 Pulse 66 60 Resp 18 20 18 B/P (MAP) 121/70 (87) 128/74 (92) Pulse Ox 99 97 99 O2 Delivery Room Air Room Air Room Air 01/03/19 01/03/19 15:22 15:40 Temp 97.9 97.9 Pulse 60 81 Resp 16 20 B/P (MAP) 122/68 (86) Pulse Ox 60 98 O2 Delivery Room Air Room Air FiO2 99 General: Alert, Oriented X3, Cooperative, No acute distress HEENT: Atraumatic, PERRLA, EOMI, Mucous membr. moist/pink Neck: Supple, No JVD Lungs: Clear to auscultation, Normal air movement Heart: Regular rate, Normal S1, Normal S2, No murmurs Abdomen: Normal bowel sounds, Soft, No tenderness Extremities: No clubbing, No cyanosis, Normal pulses Skin: No rashes, No breakdown, No significant lesion Neuro: Normal speech, Strength at 5/5 X4 ext, Normal tone, Sensation intact, Cranial nerves 3-12 NL Psych/Mental Status: Mental status NL, Mood NL All Results(Lab/Rad) Current Medications Medications (Trade) Dose Ordered Sig/Laura Route PRN Reason Start Time Stop Time Status Last Admin Dose Admin Cefazolin Sodium (Ancef) 1 gm STK-MED ONCE .ROUTE 01/03/19 05:36 01/03/19 05:37 DC Sodium Chloride 100 ml @ ud STK-MED ONCE IV 01/03/19 05:36 01/03/19 05:37 DC Sodium Chloride 1,000 ml @ ud STK-MED ONCE .ROUTE 01/03/19 06:21 01/03/19 06:22 DC Sodium Chloride 200 ml @ ud STK-MED ONCE IV 01/03/19 06:21 01/03/19 06:22 DC Dexamethasone Sodium Phosphate (Decadron) 4 mg STK-MED ONCE .ROUTE 01/03/19 06:21 01/03/19 06:22 DC Ropivacaine (Naropin 0.2% 40 Mg/20 ml Vial) 2 mg STK-MED ONCE .ROUTE 01/03/19 06:22 01/03/19 06:23 DC Lidocaine HCl (Lidocaine 2% Vial) 500 mg STK-MED ONCE .ROUTE 01/03/19 06:22 01/03/19 06:24 DC Neostigmine Methylsulfate (Neostigmine) 10 mg STK-MED ONCE .ROUTE 01/03/19 06:22 01/03/19 06:24 DC Dexmedetomidine HCl (Precedex) 200 mcg STK-MED ONCE IV 01/03/19 06:22 01/03/19 06:24 DC Ondansetron HCl (Zofran) 4 mg STK-MED ONCE .ROUTE 01/03/19 06:22 01/03/19 06:24 DC Ketorolac Tromethamine (Toradol) 30 mg STK-MED ONCE .ROUTE 01/03/19 06:23 01/03/19 06:24 DC Ropivacaine (Naropin 0.5% 5 Mg/ml Vial) 150 mg STK-MED ONCE .ROUTE 01/03/19 06:23 01/03/19 06:24 DC Ephedrine Sulfate (Ephedrine Sulfate) 50 mg STK-MED ONCE .ROUTE 01/03/19 06:23 01/03/19 06:25 DC Rocuronium [place] (Zemuron) 100 mg STK-MED ONCE IV 01/03/19 06:24 01/03/19 06:25 DC Hydromorphone HCl (Dilaudid) 2 mg STK-MED ONCE .ROUTE 01/03/19 06:24 01/03/19 06:25 DC Midazolam HCl (Versed) 1 mg STK-MED ONCE .ROUTE 01/03/19 06:24 01/03/19 06:26 DC Fentanyl Citrate (Sublimaze) 100 mcg STK-MED ONCE .ROUTE 01/03/19 06:24 01/03/19 06:26 DC Propofol (Diprivan) 200 mg STK-MED ONCE IV 01/03/19 06:24 01/03/19 06:26 DC Bupivacaine HCl (Sensorcaine 0.5% Vial) 5 mg STK-MED ONCE .ROUTE 01/03/19 06:25 01/03/19 06:26 DC Sodium Chloride (Sodium Chloride) 1,000 ml STK-MED ONCE IR 01/03/19 07:16 01/03/19 07:18 DC Sodium Chloride 100 ml @ ud STK-MED ONCE IV 01/03/19 07:16 01/03/19 07:18 DC Sodium Chloride 250 ml @ ud STK-MED ONCE IV 01/03/19 07:17 01/03/19 07:18 DC Sodium Chloride (NS 3000ml Irr) 3,000 ml STK-MED ONCE IR 01/03/19 07:17 01/03/19 07:18 DC Tranexamic Acid (Tranexamic Acid) 1,000 mg STK-MED ONCE IV 01/03/19 07:37 01/03/19 07:39 DC Acetaminophen (Tylenol) 1,000 mg OT PO 01/03/19 09:00 01/03/19 14:23 DC 01/03/19 09:23 Gabapentin (Neurontin) 400 mg OT PO 01/03/19 09:00 01/03/19 14:22 DC 01/03/19 09:23 Acetaminophen (Tylenol) 1,000 mg Q6H PO 01/03/19 09:00 02/02/19 08:59 Hydromorphone HCl (Dilaudid) 0.2 mg Q5MIN PRN IV PAIN 1 - 3 01/03/19 09:30 01/04/19 09:29 Ondansetron HCl (Zofran) 4 mg PRN PRN IV nv 01/03/19 09:30 01/03/19 14:25 DC Promethazine HCl (Phenergan) 6.25 mg PRN PRN IV NAUSEA / VOMITING 01/03/19 09:30 01/03/19 14:24 DC Tramadol HCl (Ultram) 50 mg Q4HR PO 01/03/19 16:00 02/02/19 15:59 01/03/19 16:09 Tramadol HCl (Ultram) 100 mg Q4HR PRN PO SEVERE PAIN 01/03/19 14:00 02/02/19 13:59 Rivaroxaban (Xarelto) 10 mg DAILY PO 01/04/19 09:00 02/03/19 08:59 Docusate Sodium (Colace) 100 mg DAILY PO 01/04/19 09:00 02/03/19 08:59 Throat Lozenges (Cepacol Sore Throat Lozenge) 1 each PRN PRN MM SORE THROAT 01/03/19 14:00 02/02/19 13:59 Famotidine (Pepcid) 20 mg DAILY PO 01/04/19 09:00 02/03/19 08:59 Metoclopramide HCl (Reglan) 10 mg Q8HR IV 01/03/19 14:00 02/02/19 13:59 01/03/19 14:53 Cefazolin Sodium/ Dextrose (Ancef 2 Gm/D5W 50ml) 2 gm Q8 IV 01/03/19 14:00 01/03/19 14:12 DC Hydromorphone HCl (Dilaudid) 2 mg Q6HR PRN IV PAIN 8-10 01/03/19 14:00 02/02/19 13:59 Cefazolin Sodium/ Dextrose 50 ml @ 100 mls/hr Q8 IV 01/03/19 14:00 01/03/19 15:24 DC Lanolin (Lanolin Hydrous) 28 gm STK-MED ONCE TP 01/03/19 15:02 01/03/19 15:03 DC Cefazolin Sodium/ Dextrose 50 ml @ 100 mls/hr Q8H IV 01/03/19 19:00 01/04/19 11:29 Course Sepsis Screening Results: Posi: NEGATIVE Sepsis Qualifier/Stage: NO DEFINITE RISK Vitals & review Data Vital Sign - Last 24 Hours 01/03/19 01/03/19 01/03/19 01/03/19 08:24 08:24 09:44 09:52 Temp 98.1 98.1 Pulse 74 66 62 Resp 16 18 18 B/P (MAP) 139/73 (95) 149/66 (93) 130/80 (97) Pulse Ox 97 100 100 O2 Delivery Room Air Room Air Nasal [place] Nasal Canula O2 Flow Rate 2 2 01/03/19 01/03/19 01/03/19 01/03/19 09:59 13:25 13:25 13:39 Temp 97.7 98 97.7 98.0 Pulse 62 62 63 Resp 18 18 18 B/P (MAP) 127/76 (93) 115/72 (86) 122/66 (84) Pulse Ox 100 100 100 O2 Delivery Nasal [place] Non-Rebreather Room Air O2 Flow Rate 3 10 10 01/03/19 01/03/19 01/03/19 01/03/19 13:54 14:16 14:30 15:21 Temp 97.6 97.9 97.6 97.9 Pulse 66 60 Resp 18 20 18 B/P (MAP) 121/70 (87) 128/74 (92) Pulse Ox 99 97 99 O2 Delivery Room Air Room Air Room Air 01/03/19 01/03/19 15:22 15:40 Temp 97.9 97.9 Pulse 60 81 Resp 16 20 B/P (MAP) 122/68 (86) Pulse Ox 60 98 O2 Delivery Room Air Room Air FiO2 99 Current Medications Medications (Trade) Dose Ordered Sig/Laura PRN Reason Start Time Stop Time Status Last Admin Acetaminophen (Tylenol) 1,000 mg Q6H 01/03/19 09:00 02/02/19 08:59 Cefazolin Sodium/ Dextrose 50 ml @ 100 mls/hr Q8H 01/03/19 19:00 01/04/19 11:29 Docusate Sodium (Colace) 100 mg DAILY 01/04/19 09:00 02/03/19 08:59 Famotidine (Pepcid) 20 mg DAILY 01/04/19 09:00 02/03/19 08:59 Hydromorphone HCl (Dilaudid) 0.2 mg Q5MIN PRN PAIN 1 - 3 01/03/19 09:30 01/04/19 09:29 Hydromorphone HCl (Dilaudid) 2 mg Q6HR PRN PAIN 8-10 01/03/19 14:00 02/02/19 13:59 Metoclopramide HCl (Reglan) 10 mg Q8HR 01/03/19 14:00 02/02/19 13:59 01/03/19 14:53 Rivaroxaban (Xarelto) 10 mg DAILY 01/04/19 09:00 02/03/19 08:59 Throat Lozenges (Cepacol Sore Throat Lozenge) 1 each PRN PRN SORE THROAT 01/03/19 14:00 02/02/19 13:59 Tramadol HCl (Ultram) 50 mg Q4HR 01/03/19 16:00 02/02/19 15:59 01/03/19 16:09 Tramadol HCl (Ultram) 100 mg Q4HR PRN SEVERE PAIN 01/03/19 14:00 02/02/19 13:59 Sepsis Infection Criteria Pres: Suspected Infection LEVEL 1 SEPSIS INFECTION CRITE: ABX Therapy, Abdominal Pain, Recent Invasive Procedure LEVEL 2-SIRS (LIST ALL THAT AP: WBC>[id number] O2 Sat by Pulse Oximetry: 98 Oxygen Flow Rate: 10 Assessment/Plan Assessment/Plan Assessment/Plan Patient is a 68 F PMH of OA s/p R TKA with Dr. Hamptom, patient is POD #1. Plan 1. Hematuria: 2/2 gallegos irritation with anticoagulation use. Hg stable, can continue anticoagulation. 2. Nausea/vomiting: possible mild ileus. Patient abdominal pain resolved. Nausea mild. 3. Leukocytosis: likely 2/2 postoperative changes, no fevers. Improving since yesterday. 4. OA: s/p R TKA, Ortho managing. 5. PPx: Joe Vasquez MICAH R MD Jan 05, 2019 14:08
[2019-01-05 14:28] VITALS: BP 160/72
--- NOTE | 2019-01-05 15:41 | NUR ---
STATUS PT HAS CONTINUED TO HAVE N/V EVEN WITH THE USE OF REGLAN AND ZOFRAN. PT IS UNABLE TO TOLERATED FOODS AT THIS TIME. WILL CONT TO MONITOR PT FURTHER.
[2019-01-05 17:38] VITALS: BP 155/79
--- NOTE | 2019-01-05 18:38 | NUR ---
Report Received report from Kierra Lewis RN
[2019-01-05] MEDS ORDERED: MOTRIN ONE (19:19)
[2019-01-05] MEDS: MOTRIN PO PRN (19:21)
[2019-01-05 20:20] VITALS: BP 144/69
--- NOTE | 2019-01-05 23:17 | NUR ---
Patient resting in bed with eyes clsoed. Resp even and non labored. NO s/s of distress noted at this time. WIll continue to monitor. Call light within reach.
[2019-01-06 01:13] VITALS: BP 139/66
[2019-01-06] MEDS: TYLENOL PO SCH ×2 (03:00→08:51)
[2019-01-06 04:50] VITALS: BP 134/73
[2019-01-06 05:13] LABS: BASOPHIL % 0.1 % (0.0-0.2); EOSINOPHIL % 0.1 % (0.0-5.0); HEMOGLOBIN 10.5 g/dL (12.0-15.0); LYMPHOCYTES # 1.3 10^3/uL (1.0-4.8); MEAN CELL HGB 30.7 pg (26-34); MEAN CELL HGB CONCENTRATION 34.3 g/dL (33-37); MEAN CORP VOLUME 89.5 fL (78-100); MEAN PLATELET VOLUME 10.2 fL (7.8-11.0); MONOCYTES # 1.1 10^3/uL (0.3-0.8); MONOCYTES % 14.5 % (5.0-12.0); NEUTROPHILS % 68.2 % (41.0-85.0); RED CELL DISTRIBUTION WIDTH 12.3 % (11.5-14.5); WHITE BLOOD CELL 7.4 10^3/uL (4.5-11.0)
[2019-01-06 05:53] LABS: CALCIUM 8.5 mg/dL (8.4-10.5); CARBON DIOXIDE 31.2 mmol/L (20.0-32)
[2019-01-06] MEDS: REGLAN IV SCH (06:24)
[2019-01-06] MEDS: MYLANTA PO SCH ×2 (06:24)
[2019-01-06 08:20] VITALS: BP 150/82
[2019-01-06] MEDS ORDERED: MOTRIN ONE (08:27)
[2019-01-06] MEDS: MOTRIN PO PRN (08:50)
[2019-01-06] MEDS: PEPCID PO SCH (08:51)
[2019-01-06] MEDS: XARELTO PO SCH (08:51)
[2019-01-06] MEDS: COLACE PO SCH (08:51)
[2019-01-06] MEDS: LACTATED RINGERS 1,000 ML IV SCH (08:52)
--- NOTE | 2019-01-06 10:35 | PRM.PN ---
Subjective Subjective Date: Jan 06, 2019 Time: 10:34 Subjective Nausea resolved completely Pain well controlled with Tylenol HGB 10.7 Ready for DC Appt in 4 days Patient History: No known health problems 33 FATHER, , Age:60 years and older G8 BROTHER G8 SISTER V19 CHILD V19 CHILD No Family History of: Alzheimer's disease Asthma Cerebrovascular disorder Chronic obstructive pulmonary disease Congestive heart failure Diabetes insipidus Diabetes mellitus Hypertension Parkinson's disease VTE VTE Risk Total Score: 2 VTE Risk Score VTE Risk: Score 0-1 = Low Risk (Aggressive mobilization; early ambulation; no VTE prophylaxis required) Score 2: Moderate Risk (Intermittent/Pneumatic Compression Device OR Lovenox/Heparin/Coumadin) Score 3-4: High Risk (Intermittent/Pneumatic Compression Device AND Lovenox/Heparin/Coumadin) Score > or =5: Highest Risk (Intermittent/Pneumatic Compression Device AND Lovenox/Heparin/Coumadin) Review of Systems Allergies: Coded Allergies: No Known Allergies (Unverified , 12/29/18) No Active Prescriptions or Reported Meds Objective Vitals and I/O Vital Sign - Last 24 Hours 01/03/19 01/03/19 01/03/19 01/03/19 08:24 08:24 09:44 09:52 Temp 98.1 98.1 Pulse 74 66 62 Resp 16 18 18 B/P (MAP) 139/73 (95) 149/66 (93) 130/80 (97) Pulse Ox 97 100 100 O2 Delivery Room Air Room Air Nasal Canula Nasal Canula O2 Flow Rate 2 2 01/03/19 01/03/19 01/03/19 01/03/19 09:59 13:25 13:25 13:39 Temp 97.7 98 97.7 98.0 Pulse 62 62 63 Resp 18 18 18 B/P (MAP) 127/76 (93) 115/72 (86) 122/66 (84) Pulse Ox 100 100 100 O2 Delivery Nasal Canula Non-Rebreather Room Air O2 Flow Rate 3 10 10 01/03/19 01/03/19 01/03/19 01/03/19 13:54 14:16 14:30 15:21 Temp 97.6 97.9 97.6 97.9 Pulse 66 60 Resp 18 20 18 B/P (MAP) 121/70 (87) 128/74 (92) Pulse Ox 99 97 99 O2 Delivery Room Air Room Air Room Air 01/03/19 01/03/19 15:22 15:40 Temp 97.9 97.9 Pulse 60 81 Resp 16 20 B/P (MAP) 122/68 (86) Pulse Ox 60 98 O2 Delivery Room Air Room Air FiO2 99 General: Alert, Oriented X3, Cooperative, No acute distress HEENT: Atraumatic, PERRLA, EOMI, Mucous membr. moist/pink Neck: Supple, No JVD Lungs: Clear to auscultation, Normal air movement Heart: Regular rate, Normal S1, Normal S2, No murmurs Abdomen: Normal bowel sounds, Soft, No tenderness Extremities: No clubbing, No cyanosis, Normal pulses Skin: No rashes, No breakdown, No significant lesion Neuro: Normal speech, Strength at 5/5 X4 ext, Normal tone, Sensation intact, Cranial nerves 3-12 NL Psych/Mental Status: Mental status NL, Mood NL All Results(Lab/Rad) Current Medications Medications (Trade) Dose Ordered Sig/Laura Route PRN Reason Start Time Stop Time Status Last Admin Dose Admin Cefazolin Sodium (Ancef) 1 gm STK-MED ONCE .ROUTE 01/03/19 05:36 01/03/19 05:37 DC Sodium Chloride 100 ml @ ud STK-MED ONCE IV 01/03/19 05:36 01/03/19 05:37 DC Sodium Chloride 1,000 ml @ ud STK-MED ONCE .ROUTE 01/03/19 06:21 01/03/19 06:22 DC Sodium Chloride 200 ml @ ud STK-MED ONCE IV 01/03/19 06:21 01/03/19 06:22 DC Dexamethasone Sodium Phosphate (Decadron) 4 mg STK-MED ONCE .ROUTE 01/03/19 06:21 01/03/19 06:22 DC Ropivacaine (Naropin 0.2% 40 Mg/20 ml Vial) 2 mg STK-MED ONCE .ROUTE 01/03/19 06:22 01/03/19 06:23 DC Lidocaine HCl (Lidocaine 2% Vial) 500 mg STK-MED ONCE .ROUTE 01/03/19 06:22 01/03/19 06:24 DC Neostigmine Methylsulfate (Neostigmine) 10 mg STK-MED ONCE .ROUTE 01/03/19 06:22 01/03/19 06:24 DC Dexmedetomidine HCl (Precedex) 200 mcg STK-MED ONCE IV 01/03/19 06:22 01/03/19 06:24 DC Ondansetron HCl (Zofran) 4 mg STK-MED ONCE .ROUTE 01/03/19 06:22 01/03/19 06:24 DC Ketorolac Tromethamine (Toradol) 30 mg STK-MED ONCE .ROUTE 01/03/19 06:23 01/03/19 06:24 DC Ropivacaine (Naropin 0.5% 5 Mg/ml Vial) 150 mg STK-MED ONCE .ROUTE 01/03/19 06:23 01/03/19 06:24 DC Ephedrine Sulfate (Ephedrine Sulfate) 50 mg STK-MED ONCE .ROUTE 01/03/19 06:23 01/03/19 06:25 DC Rocuronium Homer (Zemuron) 100 mg STK-MED ONCE IV 01/03/19 06:24 01/03/19 06:25 DC Hydromorphone HCl (Dilaudid) 2 mg STK-MED ONCE .ROUTE 01/03/19 06:24 01/03/19 06:25 DC Midazolam HCl (Versed) 1 mg STK-MED ONCE .ROUTE 01/03/19 06:24 01/03/19 06:26 DC Fentanyl Citrate (Sublimaze) 100 mcg STK-MED ONCE .ROUTE 01/03/19 06:24 01/03/19 06:26 DC Propofol (Diprivan) 200 mg STK-MED ONCE IV 01/03/19 06:24 01/03/19 06:26 DC Bupivacaine HCl (Sensorcaine 0.5% Vial) 5 mg STK-MED ONCE .ROUTE 01/03/19 06:25 01/03/19 06:26 DC Sodium Chloride (Sodium Chloride) 1,000 ml STK-MED ONCE IR 01/03/19 07:16 01/03/19 07:18 DC Sodium Chloride 100 ml @ ud STK-MED ONCE IV 01/03/19 07:16 01/03/19 07:18 DC Sodium Chloride 250 ml @ ud STK-MED ONCE IV 01/03/19 07:17 01/03/19 07:18 DC Sodium Chloride (NS 3000ml Irr) 3,000 ml STK-MED ONCE IR 01/03/19 07:17 01/03/19 07:18 DC Tranexamic Acid (Tranexamic Acid) 1,000 mg STK-MED ONCE IV 01/03/19 07:37 01/03/19 07:39 DC Acetaminophen (Tylenol) 1,000 mg OT PO 01/03/19 09:00 01/03/19 14:23 DC 01/03/19 09:23 Gabapentin (Neurontin) 400 mg OT PO 01/03/19 09:00 01/03/19 14:22 DC 01/03/19 09:23 Acetaminophen (Tylenol) 1,000 mg Q6H PO 01/03/19 09:00 02/02/19 08:59 Hydromorphone HCl (Dilaudid) 0.2 mg Q5MIN PRN IV PAIN 1 - 3 01/03/19 09:30 01/04/19 09:29 Ondansetron HCl (Zofran) 4 mg PRN PRN IV nv 01/03/19 09:30 01/03/19 14:25 DC Promethazine HCl (Phenergan) 6.25 mg PRN PRN IV NAUSEA / VOMITING 01/03/19 09:30 01/03/19 14:24 DC Tramadol HCl (Ultram) 50 mg Q4HR PO 01/03/19 16:00 02/02/19 15:59 01/03/19 16:09 Tramadol HCl (Ultram) 100 mg Q4HR PRN PO SEVERE PAIN 01/03/19 14:00 02/02/19 13:59 Rivaroxaban (Xarelto) 10 mg DAILY PO 01/04/19 09:00 02/03/19 08:59 Docusate Sodium (Colace) 100 mg DAILY PO 01/04/19 09:00 02/03/19 08:59 Throat Lozenges (Cepacol Sore Throat Lozenge) 1 each PRN PRN MM SORE THROAT 01/03/19 14:00 02/02/19 13:59 Famotidine (Pepcid) 20 mg DAILY PO 01/04/19 09:00 02/03/19 08:59 Metoclopramide HCl (Reglan) 10 mg Q8HR IV 01/03/19 14:00 02/02/19 13:59 01/03/19 14:53 Cefazolin Sodium/ Dextrose (Ancef 2 Gm/D5W 50ml) 2 gm Q8 IV 01/03/19 14:00 01/03/19 14:12 DC Hydromorphone HCl (Dilaudid) 2 mg Q6HR PRN IV PAIN 8-10 01/03/19 14:00 02/02/19 13:59 Cefazolin Sodium/ Dextrose 50 ml @ 100 mls/hr Q8 IV 01/03/19 14:00 01/03/19 15:24 DC Lanolin (Lanolin Hydrous) 28 gm STK-MED ONCE TP 01/03/19 15:02 01/03/19 15:03 DC Cefazolin Sodium/ Dextrose 50 ml @ 100 mls/hr Q8H IV 01/03/19 19:00 01/04/19 11:29 Course Sepsis Screening Results: Posi: NEGATIVE Sepsis Qualifier/Stage: NO DEFINITE RISK Vitals & review Data Vital Sign - Last 24 Hours 01/03/19 01/03/19 01/03/19 01/03/19 08:24 08:24 09:44 09:52 Temp 98.1 98.1 Pulse 74 66 62 Resp 16 18 18 B/P (MAP) 139/73 (95) 149/66 (93) 130/80 (97) Pulse Ox 97 100 100 O2 Delivery Room Air Room Air Nasal Canula Nasal Canula O2 Flow Rate 2 2 01/03/19 01/03/19 01/03/19 01/03/19 09:59 13:25 13:25 13:39 Temp 97.7 98 97.7 98.0 Pulse 62 62 63 Resp 18 18 18 B/P (MAP) 127/76 (93) 115/72 (86) 122/66 (84) Pulse Ox 100 100 100 O2 Delivery Nasal Canula Non-Rebreather Room Air O2 Flow Rate 3 10 10 01/03/19 01/03/19 01/03/19 01/03/19 13:54 14:16 14:30 15:21 Temp 97.6 97.9 97.6 97.9 Pulse 66 60 Resp 18 20 18 B/P (MAP) 121/70 (87) 128/74 (92) Pulse Ox 99 97 99 O2 Delivery Room Air Room Air Room Air 01/03/19 01/03/19 15:22 15:40 Temp 97.9 97.9 Pulse 60 81 Resp 16 20 B/P (MAP) 122/68 (86) Pulse Ox 60 98 O2 Delivery Room Air Room Air FiO2 99 Current Medications Medications (Trade) Dose Ordered Sig/Laura PRN Reason Start Time Stop Time Status Last Admin Acetaminophen (Tylenol) 1,000 mg Q6H 01/03/19 09:00 02/02/19 08:59 Cefazolin Sodium/ Dextrose 50 ml @ 100 mls/hr Q8H 01/03/19 19:00 01/04/19 11:29 Docusate Sodium (Colace) 100 mg DAILY 01/04/19 09:00 02/03/19 08:59 Famotidine (Pepcid) 20 mg DAILY 01/04/19 09:00 02/03/19 08:59 Hydromorphone HCl (Dilaudid) 0.2 mg Q5MIN PRN PAIN 1 - 3 01/03/19 09:30 01/04/19 09:29 Hydromorphone HCl (Dilaudid) 2 mg Q6HR PRN PAIN 8-10 01/03/19 14:00 02/02/19 13:59 Metoclopramide HCl (Reglan) 10 mg Q8HR 01/03/19 14:00 02/02/19 13:59 01/03/19 14:53 Rivaroxaban (Xarelto) 10 mg DAILY 01/04/19 09:00 02/03/19 08:59 Throat Lozenges (Cepacol Sore Throat Lozenge) 1 each PRN PRN SORE THROAT 01/03/19 14:00 02/02/19 13:59 Tramadol HCl (Ultram) 50 mg Q4HR 01/03/19 16:00 02/02/19 15:59 01/03/19 16:09 Tramadol HCl (Ultram) 100 mg Q4HR PRN SEVERE PAIN 01/03/19 14:00 02/02/19 13:59 Sepsis Infection Criteria Pres: Suspected Infection LEVEL 1 SEPSIS INFECTION CRITE: ABX Therapy, Abdominal Pain, Recent Invasive Procedure LEVEL 2-SIRS (LIST ALL THAT AP: [id number] O2 Sat by Pulse Oximetry: 93 Oxygen Flow Rate: 10 Assessment/Plan Assessment/Plan Assessment/Plan 1. Hematuria: 2/2 gallegos irritation with anticoagulation use. Hg stable, can continue anticoagulation. 2. Nausea/vomiting: possible mild ileus. Patient abdominal pain resolved. Nausea mild. 3. Leukocytosis: likely 2/2 postoperative changes, no fevers. Improving since yesterday. 4. OA: s/p R TKA, Ortho managing. 5. PPx: PeporaliadJoe Plan 1. Hematuria: 2/2 gallegos irritation with anticoagulation use. Hg stable, can continue anticoagulation. 2. Nausea/vomiting: possible mild ileus. Patient abdominal pain resolved. Nausea mild. 3. Leukocytosis: likely 2/2 postoperative changes, no fevers. Improving since yesterday. 4. OA: s/p R TKA, Ortho managing. 5. PPx: Joe Vasquez DAVID M MD Jan 06, 2019 10:35
[2019-01-06 12:04] VITALS: BP 134/78
[2019-01-06 14:00] VITALS: BP 134/78
--- NOTE | 2019-01-06 20:26 | DSH ---
DATE OF DISCHARGE: 01/06/2019 ADMITTING DIAGNOSIS: Include osteoarthritis of the right knee. OTHER DIAGNOSES: Include gastroesophageal reflux disease. OPERATIVE PROCEDURE DATE: 01/03/2019. PROCEDURE PERFORMED: Right total knee arthroplasty. DISCHARGE DIAGNOSES: 1. Gastroesophageal reflux disease. 2. Osteoarthritis of the right knee. 3. Postoperative anemia secondary to surgical blood loss expected. SUMMARY OF ADMISSION: The patient is a 68-year-old female with severe pain about the right knee that limited her daily activities secondary to osteoarthritis. Radiographically, she was [id number] tricompartmentally about the right knee. She had failed conservative treatment and was taken to the operating room on 01/03/2019 for right total knee arthroplasty. The patient's surgery was performed without incident. Postoperatively, the patient has done well. She had a normal neurovascular exam postoperatively and her vital signs have been stable. She had some difficulty with persistent nausea and vomiting postoperatively; however, it resolved once her narcotics were stopped. On discharge, the patient states that she is comfortable taking aspirin for the pain. She has had daily physical therapy and occupational therapy for gait training as well as ADLs. On discharge, the patient can transfer in and out of bed with minimal assistance. She can walk 100 feet with her walker, weightbearing as tolerated. The patient's hemoglobin dropped to a low of 10.0, however, her vital signs have remained stable. The anemia was felt to be surgical blood loss related and expected. Discharge hemoglobin is 10.7 and again her vital signs have been stable. The patient will be discharged today on 01/06/2019. She will be instructed to leave her Prevena dressing intact. She will do physical therapy in [place], [place]. She will be instructed to use aspirin 81 mg twice a day for 1 month for DVT prophylaxis. She will continue with the Tylenol for the pain. I will see her in my office on 01/10/2019. Tamir Sánchez MD DR: [email or web address]/[email or web address] JOB# [id number]
== END 2019-01-06 15:03 | disposition home or self-care (01) | DRG 470 ==
LOC: MS 13:51 → EDPENDDISTM 01-06 14:01
PROVIDERS: ADMIT Orthopaedic Surgery; ATTEND Orthopaedic Surgery
PROC: 0SRC0J9 Replacement of Right Knee Joint with Synthetic Substitute, Cemented, Open Approach (ICD-10-PCS; principal; 2019-01-03 11:01)
DX: M17.11 Unilateral primary osteoarthritis, right knee (principal); D62 Acute posthemorrhagic anemia; D68.32 Hemorrhagic disorder due to extrinsic circulating anticoagulants; K21.9 Gastro-esophageal reflux disease without esophagitis; R31.9 Hematuria, unspecified; D72.829 Elevated white blood cell count, unspecified; E78.00 Pure hypercholesterolemia, unspecified; Z90.710 Acquired absence of both cervix and uterus; Z79.01 Long term (current) use of anticoagulants; Z80.0 Family history of malignant neoplasm of digestive organs; Z80.49 Family history of malignant neoplasm of other genital organs
CPT/HCPCS: 36415; 64447; 64450; 64999; 73560; 74018; 80053; 81000; 85025; 85027; 87070; 93005; 97161; 97165; A4217; A4338; C1776; G0378; J0690; J1100; J1170; J1885; J2001; J2250; J2405; J2710; J2765; J2795; J3010; J3490; J7030; J7050; J7120; 97110-GP; 97116-GP; 97535-GO; 97760-GP